=== PATIENT | female | born 1980 | race Hispanic/Latino ===

== ENCOUNTER 2018-03-21 08:23 | Outpatient (CLI) | payer OTHER ==
--- NOTE | 2018-03-21 10:35 | ULT ---
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 37-year-old female. FINDINGS: number: Eller lie: Transverse, with head to maternal left Maternal cervix: 5.5 cm in length and closed. Internal os is completely covered by the placenta. Placenta: Anterolateral, to the maternal left. The distal portion completely covers the entire r d internship al cervical os. Amniotic fluid volume: 13 cm heart rate: 146 bpm The following anatomy is visualized, with no evidence of anomalies: Head, cerebellum, cisternal magna, lateral ventricles, four chamber heart, stomach, kidneys, bladder, spine, nose and lips, upper extremities, lower extremities and three vessel cord. Cord insertion not well visualized. biometry: Head circumference (HC): 17.0 cm 19 w 5 d Biparietal diameter (BPD): 4.5 cm 19 w 4 d Abdominal circumference (AC): 13.7 cm 19 w 1 d Femur length (FL): 13.2 cm 19 w 6 d Average ultrasound age (AUA): 19 w 4 d Estimated date of delivery (DEBI): 08/11/2018 Last menstrual period (LMP): 10/30/2017 Gestational age by LMP: 20 w 2 d Estimated weight (EFW): 295 g (+/- 43 g) 0 lbs. 10 oz (+/- 2 oz.) IMPRESSION: 1. Live 2nd trimester intrauterine gestation. 2. Estimated gestational age of 19 weeks, 4 days. 3. Transverse lie. 4. Placenta previa. 5. Recommend follow up. Code T JN R POS: [facility]
== END 2018-03-21 08:24 | disposition home or self-care (01) ==
LOC: BICULT 08:23
PROVIDERS: ATTEND Family Medicine
DX: O09.522 Supervision of elderly multigravida, second trimester (principal); Z3A.19 19 weeks gestation of pregnancy; O44.02 Complete placenta previa NOS or without hemorrhage, second trimester
CPT/HCPCS: 76805

== ENCOUNTER 2018-07-30 10:50 | Inpatient (IN) | payer MEDICAID, OTHER, SELFPAY ==
[2018-07-30] MEDS ORDERED: Butorphanol Tartrate 1 MG/ML VIAL SLOW IVP PRN (11:31)
[2018-07-30] MEDS ORDERED: Lidocaine 1% (PF) 30 ML VIAL SC PRN (11:31)
[2018-07-30] MEDS ORDERED: Ibuprofen 800 MG TAB PO PRN (11:31)
[2018-07-30] MEDS ORDERED: Ondansetron PF 4 MG/2 ML Vial IVP PRN ×2 (11:31→14:23)
[2018-07-30] MEDS ORDERED: NS / Oxytocin 40 units/1000ml 1,000 ML IV PRN (11:31)
[2018-07-30] MEDS ORDERED: Lactated Ringer's 1,000 ML IV SCH ×2 (11:45)
[2018-07-30 11:51] VITALS: BMI 34.2
[2018-07-30] MEDS ORDERED: hydrALAZINE 20 MG/ML VIAL ONE (12:25)
[2018-07-30 12:30] LABS: Hemoglobin 12.3 g/dL (12.0-16.0); Mean Corpuscular Hemoglobin 30.9 pg (27.0-31.0); Mean Corpuscular Volume 90.9 fL (78.0-98.0); Mean Platelet Volume 9.4 fL (7.4-10.4); Platelet Count 188 thou/uL (130-400); RBC Distribution Width 13.7 % (11.5-14.5); Red Blood Cell (RBC) Count 3.98 mill/uL (4.20-5.40); White Blood Cell (WBC) Count 10.8 thou/uL (4.8-10.8)
[2018-07-30] MEDS ORDERED: hydrALAZINE 20 MG/ML VIAL SLOW IVP SCH ×3 (12:35→12:50)
[2018-07-30 13:11] LABS: Syphilis Antibody Nonreactive (Nonreactive); Syphilis Antibody Index 0.03 S/CO (<1.00 Non-Reactive)
[2018-07-30 13:12] LABS: HBSAg Index 0.29 S/CO (0-0.99); Hep B Surf Ag Non-Reactive S/CO (NonReactive)
[2018-07-30] MEDS ORDERED: Magnesium Sulfate 20 gm/500 ml 20 GM/500 ML BAG ONE (13:29)
[2018-07-30] MEDS ORDERED: Benzocaine-Menthol 82.5 ML CAN TOP PRN (14:23)
[2018-07-30] MEDS ORDERED: Bisacodyl 10 MG SUPP PR PRN (14:23)
[2018-07-30] MEDS ORDERED: Lanolin Ointment 7 GM TUBE TOP PRN (14:23)
[2018-07-30] MEDS ORDERED: Milk Of Magnesia 30 ML UDCUP PO PRN (14:23)
[2018-07-30] MEDS ORDERED: NS / Oxytocin 40 units/1000ml 1,000 ML IV SCH (14:23)
[2018-07-30] MEDS ORDERED: Promethazine HCl 25 MG/ML VIAL IM PRN (14:23)
[2018-07-30] MEDS ORDERED: hydrALAZINE 20 MG/ML VIAL SLOW IVP PRN (14:23)
[2018-07-30] MEDS ORDERED: Calcium Gluconate 4.6 MEQ in Sodium Chloride 0.9% 100 ML IVPB PRN (14:23)
[2018-07-30] MEDS ORDERED: Magnesium Sulfate 20 GM/WATER 500 ML BAG IVPB SCH (14:23)
[2018-07-30] MEDS ORDERED: diphenhydrAMINE 25 MG CAP PO PRN (14:23)
[2018-07-30] MEDS ORDERED: HYDROcodone/Acetaminophen 5/325 mg Tablet PO PRN (14:23)
[2018-07-30] MEDS: Ibuprofen 800 MG TAB PO SCH (15:24)
[2018-07-30] MEDS: Ferrous Sulfate 325 MG TAB PO SCH (17:28)
[2018-07-30] MEDS: HYDROcodone/Acetaminophen 5/325 mg Tablet PO PRN (19:44)
[2018-07-30] MEDS: Magnesium Sulfate 20 gm/500 ml 20 GM/500 ML BAG IVPB SCH (22:00)
[2018-07-31] MEDS: Docusate Calcium (SURFAK) 240 MG CAP PO SCH ×3 (00:56→21:37)
[2018-07-31] MEDS: HYDROcodone/Acetaminophen 5/325 mg Tablet PO PRN (00:57)
[2018-07-31] MEDS: Ibuprofen 800 MG TAB PO SCH ×4 (01:12→21:37)
[2018-07-31] MEDS: Magnesium Sulfate 20 gm/500 ml 20 GM/500 ML BAG IVPB SCH (07:35)
[2018-07-31] MEDS ORDERED: cloNIDine 0.1 MG TAB PO PRN (07:38)
[2018-07-31 08:08] LABS: Hemoglobin 11.9 g/dL (12.0-16.0); Mean Corpuscular Hemoglobin 30.7 pg (27.0-31.0); Mean Corpuscular Volume 90.2 fL (78.0-98.0); Mean Platelet Volume 8.8 fL (7.4-10.4); Platelet Count 175 thou/uL (130-400); RBC Distribution Width 13.7 % (11.5-14.5); Red Blood Cell (RBC) Count 3.86 mill/uL (4.20-5.40); White Blood Cell (WBC) Count 10.3 thou/uL (4.8-10.8)
[2018-07-31] MEDS: Prenatal Vitamin 1 TAB PO SCH (11:55)
[2018-07-31] MEDS: Ferrous Sulfate 325 MG TAB PO SCH ×2 (11:55→17:16)
[2018-08-01] MEDS: Ferrous Sulfate 325 MG TAB PO SCH (09:05)
[2018-08-01] MEDS: Docusate Calcium (SURFAK) 240 MG CAP PO SCH (09:13)
[2018-08-01] MEDS: Ibuprofen 800 MG TAB PO SCH (09:13)
[2018-08-01] MEDS: Prenatal Vitamin 1 TAB PO SCH (09:13)
[2018-08-01 12:04] VITALS: BP 125/58; TEMP 98
== END 2018-08-01 18:20 | disposition home or self-care (01) | DRG 807 ==
LOC: L&D/OP 10:50 → L&D 12:11 → 3SW 07-31 13:46
PROVIDERS: ADMIT Family Medicine; ATTEND Family Medicine
PROC: 0HQ9XZZ Repair Perineum Skin, External Approach (ICD-10-PCS; principal; 2018-07-30)
PROC: 10E0XZZ Delivery of Products of Conception, External Approach (ICD-10-PCS; 2018-07-30)
DX: O14.94 Unspecified pre-eclampsia, complicating childbirth (principal); Z37.0 Single live birth; O77.0 Labor and delivery complicated by meconium in amniotic fluid; O70.0 First degree perineal laceration during delivery; Z3A.39 39 weeks gestation of pregnancy
CPT/HCPCS: 36415; 51702; 83735; 85027; 86780; 86850; 86900; 86901; 87340; 88307; 99285; J0360; J2001; J3475

== ENCOUNTER 2019-12-29 13:58 | Emergency (ER) | payer MEDICAID, SELFPAY ==
[2019-12-29 15:03] LABS: #Eosinphils 0.1 thou/uL (0.0-0.7); #Monocytes 0.4 thou/uL (0.11-0.59); #Neutrophils 2.4 thou/uL (1.40-6.50); %Basophils 0.8 % (0.0-1.0); %Eosinophils 2.3 % (0.0-10.0); %Lymphocytes 40.6 % (21.0-51.0); %Monocytes 8.8 % (0.0-10.0); %Neutrophils 47.5 % (42.0-75.0); Hemoglobin 14.1 g/dL (12.0-16.0); Mean Corpuscular HGB CONC 35.3 g/dL (32.0-36.0); Mean Corpuscular Hemoglobin 32.3 pg (27.0-31.0); Mean Corpuscular Volume 91.5 fL (78.0-98.0); Mean Platelet Volume 8.1 fL (7.4-10.4); Platelet Count 252 thou/uL (130-400); RBC Distribution Width 12.5 % (11.5-14.5); Red Blood Cell (RBC) Count 4.35 mill/uL (4.20-5.40)
[2019-12-29 15:12] LABS: BHCG - Serum POSITIVE (NEGATIVE); Pregs Control Background? CLEAR/WHITE (CLR/WHITE); Pregs Control Bar Appear? YES (CONTROL BAR)
[2019-12-29 15:26] LABS: ALT (SGPT) 42 U/L (8-55); AST (SGOT) 25 U/L (5-34); Albumin 4.3 g/dL (3.5-5.0); Alkaline Phosphatase 102 U/L (40-110); Anion Gap 13 mmol/L (10-20); BUN (Urea Nitrogen) 16 mg/dL (7.0-18.7); Bilirubin, Total 0.5 mg/dL (0.2-1.2); Calc. Creatinine Clearance 0 mL/min (70-130); Calcium 9.4 mg/dL (7.8-10.44); Carbon Dioxide 26 mmol/L (22-29); Chloride 104 mmol/L (98-107); Estimated GFR-MDRD 83; Globulin 3.4 g/dL (2.4-3.5); Glucose 98 mg/dL (70-105); Protein, Total 7.7 g/dL (6.0-8.3); Sodium 139 mmol/L (136-145)
[2019-12-29 16:15] LABS: Bacteria/HPF None Seen HPF (None Seen); Bilirubin Negative (Negative); Blood, Urine Trace (Negative); Clarity Clear (Clear); Glucose, Urine (Dipstick) Normal (Negative); Ketone, Urine Negative (Negative); Leukocyte Negative Leu/uL (Negative); Nitrite Negative (Negative); Protein, Urine (Dipstick) Negative (Neg-Trace); RBC/HPF 0-3 HPF (0-3); Squamous Epithelial 0-3 HPF (0-3); Urobilinogen Normal mg/dL (Less than 2); WBC/HPF 0-3 HPF (0-3); pH, Urine 6.5 (5.0-9.0)
--- NOTE | 2019-12-29 17:05 | ULT ---
ULTRASOUND PELVIC ULTRASOUND TRANSVAGINAL DOPPLER DUPLEX: DATE: 12/29/2019 HISTORY: 39-year-old female with positive beta hCG presents with pelvic TECHNIQUE: Transabdominal transducer and endovaginal transducer used to visualize intrapelvic contents with pedersen scale, color-flow, and spectral analysis. FINDINGS: Uterus:10 x 5 x 7 cm. Endometrial stripe:1.7 cm (17 mm). Right ovary:3.3 x 1.9 x 2.6 cm.. Left ovary:2 x 3.3 x 1.4 cm.. Uterine leiomyoma (fibroid):None Blood flow in ovaries:Demonstrated in right ovary. Difficult to demonstrate flow in left ovary, proba gabriella for technical reasons. There is a 1.6 cm right ovarian dominant follicle. Free fluid in the cul-de-sac:None. Intrauterine gestational sac: None visualized. Ectopic gestation: None visualized. However, negative ultrasound does not necessarily rule out out. IMPRESSION: thickened endometrial stripe without evidence of intrauterine gestational sac.
[2019-12-29] MEDS ORDERED: Acetaminophen 500 MG TAB ONE (17:10)
== END 2019-12-29 18:28 | disposition home or self-care (01) ==
LOC: ERS 13:58
DX: O20.9 Hemorrhage in early pregnancy, unspecified (principal); O99.341 Other mental disorders complicating pregnancy, first trimester; F32.9 Major depressive disorder, single episode, unspecified
CPT/HCPCS: 36415; 76856; 80053; 81001; 84702; 84703; 85025; 86900; 86901

== ENCOUNTER 2019-12-31 13:11 | Emergency (ER) | payer SELFPAY | END 2019-12-31 15:00 | disposition home or self-care (01) | LOC: ERS 13:11 | DX: O20.0 Threatened abortion (principal); O99.341 Other mental disorders complicating pregnancy, first trimester; F32.9 Major depressive disorder, single episode, unspecified; Z3A.01 Less than 8 weeks gestation of pregnancy | CPT/HCPCS: 36415; 84702; 99284 ==

== ENCOUNTER 2020-12-20 09:33 | Outpatient (CLI) | payer OTHER | END 2020-12-20 09:34 | disposition home or self-care (01) | LOC: BICULT 09:33 | PROVIDERS: ATTEND Family Medicine | DX: O09.522 Supervision of elderly multigravida, second trimester (principal); Z3A.20 20 weeks gestation of pregnancy | CPT/HCPCS: 76805 ==